=== PATIENT | male | born 1975 | race Caucasian/White ===

== ENCOUNTER 2018-12-11 23:55 | Emergency (ER) | payer SELFPAY ==
[~2018-12-11] VITALS: Ht 175.3 cm; Wt 72.7 kg
[2018-12-11 23:59] VITALS: BP 143/95
[2018-12-12] MEDS ORDERED: TRIA15CR61 TOP (00:40)
== END 2018-12-12 01:10 | disposition home or self-care (01) ==
LOC: ER 23:57
DX: L50.8 Other urticaria (principal); F17.200 Nicotine dependence, unspecified, uncomplicated; Z88.5 Allergy status to narcotic agent
CPT/HCPCS: 99283

== ENCOUNTER 2019-10-27 23:03 | Emergency (ER) | payer OTHER ==
[~2019-10-27] VITALS: Ht 177.8 cm; Wt 72.7 kg
[2019-10-27 23:25] VITALS: BP 108/71
[2019-10-27] MEDS ORDERED: HYDROcodone/acetaminophen 5mg/325mg tablet PO ONE (23:50)
== END 2019-10-28 | disposition home or self-care (01) ==
LOC: ER 23:04
DX: S63.501A Unspecified sprain of right wrist, initial encounter (principal); Z88.5 Allergy status to narcotic agent; W19.XXXA Unspecified fall, initial encounter; Y93.89 Activity, other specified; Y92.89 Other specified places as the place of occurrence of the external cause; Y99.8 Other external cause status
CPT/HCPCS: 29125; 73110; 99283

== ENCOUNTER 2020-02-29 00:35 | Emergency (ER) | payer SELFPAY ==
[~2020-02-29] VITALS: Ht 177.8 cm; Wt 72.7 kg
[2020-02-29 00:44] VITALS: BP 104/77
[2020-02-29] MEDS ORDERED: AZIT-63 PO (00:58)
== END 2020-02-29 01:20 | disposition home or self-care (01) ==
LOC: ER 00:35
DX: R06.02 Shortness of breath (principal); R11.0 Nausea; Z20.828 Contact with and (suspected) exposure to other viral communicable diseases; F17.200 Nicotine dependence, unspecified, uncomplicated; Z88.5 Allergy status to narcotic agent; Z79.899 Other long term (current) drug therapy
CPT/HCPCS: 36415; 87635; 99283

== ENCOUNTER 2020-03-05 08:09 | Emergency (ER) | payer OTHER, SELFPAY ==
[~2020-03-05] VITALS: Ht 177.8 cm; Wt 72.0 kg
[~2020-03-05 08:09] MED LIST: AZIT-63 PO
[2020-03-05 08:20] VITALS: BP 129/95
[2020-03-05] MEDS ORDERED: DOXY100C43 PO (08:29)
[2020-03-05] MEDS ORDERED: PRED20TA PO (08:29)
[2020-03-05] MEDS ORDERED: ALBU18HF2 INH (08:29)
[2020-03-05] MEDS ORDERED: dexamethasone 4mg tablet PO ONE (08:30)
[2020-03-05] MEDS ORDERED: ipratropium/albuterol 3ml nebule NEB ONE (08:30)
[2020-03-05] MEDS ORDERED: acetaminophen 325mg tablet PO ONE (08:30)
== END 2020-03-05 09:25 | disposition home or self-care (01) ==
LOC: ER 08:10
DX: J02.9 Acute pharyngitis, unspecified (principal); R06.02 Shortness of breath; R05 Cough; R43.8 Other disturbances of smell and taste; Z20.828 Contact with and (suspected) exposure to other viral communicable diseases
CPT/HCPCS: 94640; 94760; 99283; 99406

== ENCOUNTER 2020-03-16 10:33 | Emergency (ER) | payer SELFPAY ==
[~2020-03-16] VITALS: Ht 180.3 cm; Wt 72.7 kg
[~2020-03-16 10:33] MED LIST changes: +ALBU18HF2 INH; +DOXY100C43 PO; +PRED20TA PO
[2020-03-16 11:40] VITALS: BP 105/56
[2020-03-16] MEDS ORDERED: HYDR-3686 PO (12:25)
== END 2020-03-16 12:43 | disposition home or self-care (01) ==
LOC: ER 10:34
DX: F41.9 Anxiety disorder, unspecified (principal); Z88.0 Allergy status to penicillin; Z88.8 Allergy status to other drugs, medicaments and biological substances; Z79.2 Long term (current) use of antibiotics; Z79.899 Other long term (current) drug therapy
CPT/HCPCS: 99283

== ENCOUNTER 2020-03-19 05:14 | Emergency (ER) | payer OTHER, SELFPAY ==
[~2020-03-19] VITALS: Ht 157.5 cm; Wt 68.2 kg
[~2020-03-19 05:14] MED LIST changes: -DOXY100C43 PO; +HYDR-3686 PO
[2020-03-19 05:20] VITALS: BP 119/87
== END 2020-03-19 06:01 | disposition home or self-care (01) ==
LOC: ER 05:14
DX: Z00.00 Encounter for general adult medical examination without abnormal findings (principal); F41.9 Anxiety disorder, unspecified; F17.200 Nicotine dependence, unspecified, uncomplicated; Z72.89 Other problems related to lifestyle; Z88.5 Allergy status to narcotic agent; Z79.2 Long term (current) use of antibiotics; Z79.899 Other long term (current) drug therapy
CPT/HCPCS: 99283

== ENCOUNTER 2020-04-05 21:38 | Inpatient (IN) | payer OTHER ==
[~2020-04-05] VITALS: Ht 180.3 cm; Wt 70.0 kg
[~2020-04-05 21:38] MED LIST changes: -AZIT-63 PO; -HYDR-3686 PO; +temazepam 15mg capsule PO PRN
[2020-04-05] MEDS ORDERED: normal saline 1000ML IV soln IVB ONE (22:15)
[2020-04-05] MEDS ORDERED: iohexol 350MG/ML 100ml bottle IV ONE (22:16)
[2020-04-05 22:41] LABS: BASOPHILS # (AUTO) 0.1 X10'3 (0-0.2); BASOPHILS % (AUTO) 0.7 % (0-1); EOSINOPHILS # (AUTO) 0.4 X10'3 (0-0.9); EOSINOPHILS % (AUTO) 5.2 % (0-6); HEMATOCRIT 41.6 % (42.0-52.0); HEMOGLOBIN 13.9 g/dl (14.0-17.9); LYMPHOCYTES % (AUTO) 26.7 % (21-51); MEAN CORPUSCULAR HEMOGLOBIN 29.7 PG (27.0-31.0); MEAN CORPUSCULAR HGB CONC 33.5 g/dL (33.0-36.5); MEAN CORPUSCULAR VOLUME 88.5 FL (78-98); MEAN PLATELET VOLUME 9.3 FL (7.4-10.4); MONOCYTES # (AUTO) 0.7 X10'3 (0-0.9); MONOCYTES % (AUTO) 9.2 % (2-12); NEUTROPHILS # (AUTO) 4.4 X10'3 (1.8-7.7); NEUTROPHILS % (AUTO) 58.2 % (42-75); PLATELET COUNT 305 X10'3 (140-440); RED CELL DISTRIBUTION WIDTH 13.4 % (11.5-14.5); WHITE BLOOD COUNT 7.5 X10'3 (4.5-11.0)
[2020-04-05 22:51] LABS: ALANINE AMINOTRANSFERASE 43 U/L (12-78); ALBUMIN 3.6 G/DL (3.4-5.0); ALBUMIN/GLOBULIN RATIO 1.1 (1.1-1.5); ALKALINE PHOSPHATASE 51 IU/L (46-116); ANION GAP 11 (8-16); ASPARTATE AMINO TRANSFERASE 37 U/L (10-37); BILIRUBIN,TOTAL 0.5 MG/DL (0.1-1.0); BLOOD UREA NITROGEN 15 MG/DL (7-18); BUN/CREATININE RATIO 9.9 (5.4-32.0); CALCIUM 8.9 MG/DL (8.5-10.1); CHLORIDE 107 MMOL/L (99-107); CREATININE 1.52 MG/DL (0.60-1.10); GLUCOSE 107 MG/DL (70-104); POTASSIUM 4.8 MMOL/L (3.5-5.1); SODIUM 141 MMOL/L (135-145); TOTAL CARBON DIOXIDE 23.1 MMOL/L (24-32); eGFR 50 ML/MIN
[2020-04-05] MEDS ORDERED: LORA-269 PO (23:34)
[2020-04-05] MEDS ORDERED: HYDROcodone/acetaminophen 10/325mg tab PO PRN (23:40)
[2020-04-05] MEDS ORDERED: acetaminophen 325mg tablet PO PRN ×2 (23:40)
[2020-04-05] MEDS ORDERED: magnesium 4gm in 100ml NS 100 ML IV PRN (23:40)
[2020-04-05] MEDS ORDERED: magnesium 2GM in 50ml NS 50 ML IV PRN (23:40)
[2020-04-05] MEDS ORDERED: HYDROcodone/acetaminophen 5mg/325mg tablet PO PRN (23:40)
[2020-04-05] MEDS ORDERED: magnesium Cl slow-release 64mg tablet PO PRN (23:40)
[2020-04-05] MEDS ORDERED: mag hydrox/Alum hydrox/simeth 30ml oral suspension PO PRN (23:40)
[2020-04-05] MEDS ORDERED: potassium Cl 20 mEq SR tablet PO PRN ×2 (23:40)
[2020-04-05] MEDS ORDERED: magnesium hydroxide 30ml (MOM) UD suspension PO PRN (23:40)
[2020-04-05] MEDS ORDERED: potassium Cl 40MEQ/1/2NS 520ml 520 ML IV PRN ×2 (23:40)
[2020-04-05] MEDS ORDERED: ondansetron/PF 4mg/2ml inj IV PRN (23:40)
[2020-04-06] VITALS (8 sets, daily range): BP systolic 92–126; BP diastolic 56–92
[2020-04-06 00:02] LABS: PARTIAL THROMBOPLASTIN TIME 26 SECONDS (22-32)
[2020-04-06 00:12] LABS: URINE AMPHETAMINE SCREEN POSITIVE (Neg); URINE BARBITUATE SCREEN NEGATIVE (Neg); URINE BENZODIAZEPINES SCREEN NEGATIVE (Neg); URINE CANNABINOID SCREEN POSITIVE (Neg); URINE COCAINE SCREEN NEGATIVE (Neg); URINE METHADONE SCREEN NEGATIVE (Neg); URINE OPIATE SCREEN NEGATIVE (Neg); URINE PHENCYCLIDINE SCREEN NEGATIVE (Neg)
[2020-04-06] MEDS ORDERED: ALBUTEROL INHALER 1 PUFF/90 MCG INHALER IH PRN (00:55)
--- NOTE | 2020-04-06 01:40 | NUR ---
Received report from Teressa YOST in ED
--- NOTE | 2020-04-06 02:00 | NUR ---
Pt arrived to unit, repositioned and settled into bed, oriented to unit and room. Pt A&O and able to make needs known will continue to monitor.
--- NOTE | 2020-04-06 04:19 | NUR ---
Notified: PAGER ID: [phone] MESSAGE: admit in [id number] came up approx. 0200 from ED for SOb he has no resp orders and is complaining of sob O2 sats 95 on RA Killian YOST [id number]
[2020-04-06] MEDS: furosemide 20 MG/2 ML vial IV SCH ×3 (05:39→19:40)
[2020-04-06 05:45] LABS: HEMATOCRIT 40.3 % (42.0-52.0); HEMOGLOBIN 13.3 g/dl (14.0-17.9); MEAN CORPUSCULAR HEMOGLOBIN 29.4 PG (27.0-31.0); MEAN CORPUSCULAR HGB CONC 33.1 g/dL (33.0-36.5); MEAN CORPUSCULAR VOLUME 88.9 FL (78-98); MEAN PLATELET VOLUME 9.8 FL (7.4-10.4); PLATELET COUNT 299 X10'3 (140-440); RED BLOOD COUNT 4.53 X10'6 (4.70-6.10); RED CELL DISTRIBUTION WIDTH 13.6 % (11.5-14.5)
[2020-04-06 05:51] LABS: ALBUMIN 3.3 G/DL (3.4-5.0); ANION GAP 11 (8-16); BLOOD UREA NITROGEN 15 MG/DL (7-18); BUN/CREATININE RATIO 11.1 (5.4-32.0); CALCIUM 8.6 MG/DL (8.5-10.1); CHLORIDE 109 MMOL/L (99-107); CHOL/HDL RATIO 3.9 (0.00-4.99); CHOLESTEROL 140 MG/DL (0-200); CREATININE 1.35 MG/DL (0.60-1.10); GLUCOSE 109 MG/DL (70-104); HDL CHOLESTEROL 36 MG/DL (35-60); LDL CHOLESTEROL 89 MG/DL (50-100); MAGNESIUM 2.1 MG/DL (1.5-2.4); POTASSIUM 4.6 MMOL/L (3.5-5.1); SODIUM 141 MMOL/L (135-145); TRIGLYCERIDES 97 MG/DL (20-135); eGFR 57 ML/MIN
--- NOTE | 2020-04-06 06:36 | NUR ---
Received report with Alannah from [facility]
--- NOTE | 2020-04-06 06:41 | NUR ---
Patient in room PCU 3026. I have received report from RITIKA Daily and had the opportunity to ask questions and assume patient care. Patient asleep in bed and in no acute distress.
[2020-04-06] MEDS: K and/or MAG REPLACEMENT MC SCH ×2 (08:00→19:41)
[2020-04-06] MEDS: LORazepam 1 MG tablet PO PRN ×2 (09:18→19:22)
--- NOTE | 2020-04-06 11:54 | NUR ---
Patient had a thoracentesis done and had 700mL taken off the right side.
[2020-04-06 12:20] LABS: PLEURAL FLUID PH 7.509 (7.63-7.65)
[2020-04-06 12:23] LABS: BFSOURCE RIGHT PLEURAL FLD
[2020-04-06 13:11] LABS: GLUCOSE,BODY FLUID 114 MG/DL; LDH,BODY FLUID 85 U/L
[2020-04-06 13:42] LABS: TOTAL PROTEIN,BODY FLUID < 2.0 G/DL
[2020-04-06 13:49] LABS: BFAPPEAR BLOODY; BFCOLOR RED; BFVOLUME 55 ML
[2020-04-06 13:50] LABS: BF RBC COUNT 36500 /CU MM; BF WBC COUNT 519 /CU MM (0-1000)
[2020-04-06 13:54] LABS: EOSINOPHILS,BODY FLUID 13 %; LYMPHOCYTES,BODY FLUID 22 %; MONOCYTES,BODY FLUID 4 %; NEUTROPHILS,BODY FLUID 61 %
--- NOTE | 2020-04-06 14:05 | NUR ---
[place] Medication Administration: For this medication-pass time frame, all medication were reviewed, dispensed, administered and documented per hospital policy by RITIKA Canseco.
--- NOTE | 2020-04-06 14:05 | NUR ---
[place] documentation: I have reviewed and agree with all interventions, assessments performed and documented by RITIKA Canseco.
--- NOTE | 2020-04-06 14:10 | NUR ---
Problems reprioritized. Patient report given, questions answered & plan of care reviewed with RITIKA Alvarado. Patient stable at transfer of care.
--- NOTE | 2020-04-06 14:10 | NUR ---
gave report with Alannah Alvarado
--- NOTE | 2020-04-06 14:55 | NUR ---
RECEIVED REPORT FROM HI YOST, ASSUMING CARE.
[2020-04-06] MEDS ORDERED: carVEDilol 3.125mg tablet PO SCH (20:00)
[2020-04-06] MEDS ORDERED: furosemide 20 MG/2 ML vial IV SCH (20:00)
--- NOTE | 2020-04-06 23:25 | NUR ---
Dr Bethea call back to unit & renews coreg, but to cut dose in half
[2020-04-06] MEDS: carVEDilol 3.125mg tablet PO SCH (23:34)
[2020-04-07] VITALS (7 sets, daily range): BP systolic 93–126; BP diastolic 60–81
[2020-04-07 06:25] LABS: ALBUMIN 3.4 G/DL (3.4-5.0); ANION GAP 12 (8-16); BLOOD UREA NITROGEN 18 MG/DL (7-18); BUN/CREATININE RATIO 12.3 (5.4-32.0); CALCIUM 9.4 MG/DL (8.5-10.1); CHLORIDE 105 MMOL/L (99-107); CREATININE 1.46 MG/DL (0.60-1.10); GLUCOSE 102 MG/DL (70-104); MAGNESIUM 2.2 MG/DL (1.5-2.4); POTASSIUM 4.3 MMOL/L (3.5-5.1); SODIUM 141 MMOL/L (135-145); TOTAL CARBON DIOXIDE 24.2 MMOL/L (24-32); eGFR 52 ML/MIN
[2020-04-07 06:26] LABS: HEMATOCRIT 45.5 % (42.0-52.0); HEMOGLOBIN 15.3 g/dl (14.0-17.9); MEAN CORPUSCULAR HEMOGLOBIN 29.5 PG (27.0-31.0); MEAN CORPUSCULAR HGB CONC 33.6 g/dL (33.0-36.5); MEAN CORPUSCULAR VOLUME 87.8 FL (78-98); PLATELET COUNT 313 X10'3 (140-440); RED BLOOD COUNT 5.19 X10'6 (4.70-6.10); RED CELL DISTRIBUTION WIDTH 13.2 % (11.5-14.5); WHITE BLOOD COUNT 8.2 X10'3 (4.5-11.0)
[2020-04-07] MEDS: K and/or MAG REPLACEMENT MC SCH ×2 (08:00→19:13)
[2020-04-07] MEDS: carVEDilol 3.125mg tablet PO SCH ×3 (08:53→19:33)
[2020-04-07] MEDS: furosemide 20 MG/2 ML vial IV SCH (08:53)
[2020-04-07] MEDS: lisinopril 2.5mg tablet PO SCH (08:53)
[2020-04-07] MEDS: LORazepam 1 MG tablet PO PRN ×2 (08:57→19:34)
--- NOTE | 2020-04-07 18:14 | NUR ---
[place] documentation: I have reviewed and agree with all interventions, assessments performed and documented by RITIKA Canseco.
--- NOTE | 2020-04-07 18:14 | NUR ---
[place] Medication Administration: For this medication-pass time frame, all medication were reviewed, dispensed, administered and documented per hospital policy by RITIKA Canseco.
--- NOTE | 2020-04-07 18:20 | NUR ---
Report given to Monica
--- NOTE | 2020-04-07 19:17 | NUR ---
Patient in room PCU 3026. I have received report from Harleen YOST and had the opportunity to ask questions and assume patient care.
[2020-04-07] MEDS: furosemide 20MG tablet PO SCH (19:32)
[2020-04-08 06:00] VITALS: BP 113/48
[2020-04-08 06:06] LABS: HEMATOCRIT 48.3 % (42.0-52.0); HEMOGLOBIN 16.1 g/dl (14.0-17.9); MEAN CORPUSCULAR HEMOGLOBIN 29.2 PG (27.0-31.0); MEAN CORPUSCULAR HGB CONC 33.3 g/dL (33.0-36.5); MEAN CORPUSCULAR VOLUME 87.6 FL (78-98); MEAN PLATELET VOLUME 9.7 FL (7.4-10.4); PLATELET COUNT 324 X10'3 (140-440); RED BLOOD COUNT 5.51 X10'6 (4.70-6.10); RED CELL DISTRIBUTION WIDTH 13.6 % (11.5-14.5); WHITE BLOOD COUNT 8.7 X10'3 (4.5-11.0)
[2020-04-08 06:13] LABS: ALBUMIN 3.5 G/DL (3.4-5.0); ANION GAP 9 (8-16); BLOOD UREA NITROGEN 23 MG/DL (7-18); BUN/CREATININE RATIO 16.8 (5.4-32.0); CHLORIDE 105 MMOL/L (99-107); CREATININE 1.37 MG/DL (0.60-1.10); GLUCOSE 100 MG/DL (70-104); MAGNESIUM 2.2 MG/DL (1.5-2.4); POTASSIUM 4.2 MMOL/L (3.5-5.1); SODIUM 138 MMOL/L (135-145); TOTAL CARBON DIOXIDE 24.1 MMOL/L (24-32); eGFR 56 ML/MIN
--- NOTE | 2020-04-08 06:50 | NUR ---
Problems reprioritized. Patient report given, questions answered & plan of care reviewed with Ailin YOST.
[2020-04-08] MEDS: K and/or MAG REPLACEMENT MC SCH ×2 (08:00→20:00)
[2020-04-08] MEDS: lisinopril 2.5mg tablet PO SCH (08:00)
[2020-04-08] MEDS: carVEDilol 3.125mg tablet PO SCH ×2 (08:00→20:00)
[2020-04-08] MEDS: furosemide 20MG tablet PO SCH (08:00)
--- NOTE | 2020-04-08 10:05 | NUR ---
MD ROSEN RETURNED PAGED INSTANTLY ABOUT LOW BP 89/[address] STATES IT IS OK TO HOLD AM MEDICATIONS THEY WOULD ALL AFFECT HIS BP AND STATES HE MAY REDUCED LASIX ADMINISTRATION TO ONCE DAILY. WILL CONT. TO MONITOR WHILE ON MY SHIFT.
[2020-04-08 11:00] VITALS: BP 93/64
[2020-04-08 15:00] VITALS: BP 98/69
--- NOTE | 2020-04-08 17:42 | NUR ---
PAGER ID: [phone] MESSAGE: KRISTIE SKAGGS [id number] FYI NO PREVENTATIVE FOR BLOOD CLOTS AND PT. IS NOT WALKING. BECK [id number]
[2020-04-08 18:00] VITALS: BP 97/66
--- NOTE | 2020-04-08 18:54 | NUR ---
Gave report to Pippa YOST.
--- NOTE | 2020-04-08 18:55 | NUR ---
Patient in room PCU 3026. I have received report from AVIS YOST and had the opportunity to ask questions and assume patient care.
[2020-04-08] MEDS: LORazepam 1 MG tablet PO PRN (19:47)
[2020-04-08] MEDS ORDERED: enoxaparin 30mg/0.3ml syringe SUBCUT SCH (20:00)
[2020-04-08 22:00] VITALS: BP 116/74
[2020-04-09 02:00] VITALS: BP 120/82
--- NOTE | 2020-04-09 06:14 | NUR ---
Problems reprioritized. Patient report given, questions answered & plan of care reviewed with Melyssa YOST.
--- NOTE | 2020-04-09 06:17 | NUR ---
Patient in room PCU 3026. I have received report from RITIKA Lopez and had the opportunity to ask questions and assume patient care.
[2020-04-09 07:00] VITALS: BP 96/66
[2020-04-09 07:54] LABS: HEMATOCRIT 47.2 % (42.0-52.0); MEAN CORPUSCULAR HEMOGLOBIN 29.7 PG (27.0-31.0); MEAN CORPUSCULAR HGB CONC 33.9 g/dL (33.0-36.5); MEAN CORPUSCULAR VOLUME 87.7 FL (78-98); MEAN PLATELET VOLUME 9.8 FL (7.4-10.4); PLATELET COUNT 335 X10'3 (140-440); RED BLOOD COUNT 5.38 X10'6 (4.70-6.10); RED CELL DISTRIBUTION WIDTH 13.3 % (11.5-14.5); WHITE BLOOD COUNT 7.6 X10'3 (4.5-11.0)
[2020-04-09] MEDS ORDERED: furosemide 20MG tablet PO SCH (08:00)
[2020-04-09] MEDS: K and/or MAG REPLACEMENT MC SCH (08:00)
[2020-04-09 08:12] LABS: ALBUMIN 3.5 G/DL (3.4-5.0); ANION GAP 11 (8-16); BLOOD UREA NITROGEN 23 MG/DL (7-18); BUN/CREATININE RATIO 17.7 (5.4-32.0); CALCIUM 8.9 MG/DL (8.5-10.1); CHLORIDE 105 MMOL/L (99-107); GLUCOSE 99 MG/DL (70-104); MAGNESIUM 2.3 MG/DL (1.5-2.4); POTASSIUM 4.2 MMOL/L (3.5-5.1); SODIUM 138 MMOL/L (135-145); TOTAL CARBON DIOXIDE 22.5 MMOL/L (24-32); eGFR 60 ML/MIN
[2020-04-09] MEDS ORDERED: carVEDilol 3.125mg tablet PO SCH (08:45)
[2020-04-09] MEDS ORDERED: lisinopril 2.5mg tablet PO SCH (08:45)
--- NOTE | 2020-04-09 09:23 | NUR ---
Paged Dr Abdi regarding BP Re Saul Cutler [phone] Can you call me about pt please. BP manually is 82/70, please advise if you still want meds to be given. Thanks Melyssa Tobar [phone]
--- NOTE | 2020-04-09 09:25 | NUR ---
Per Dr Abdi, give Lisinopril PO first, see if BP tolerates medication, then give Lasix PO and Carvedilol PO if BP stays within normal limits.
[2020-04-09] MEDS: lisinopril 2.5mg tablet PO SCH (09:48)
[2020-04-09 11:00] VITALS: BP 102/72
--- NOTE | 2020-04-09 14:20 | NUR ---
Pt left AMA, Dr Abdi notified.
== END 2020-04-09 14:29 | disposition left against medical advice (07) | DRG 315 ==
LOC: ER 21:39 → ED HOLD 23:39 → PCU 3S 04-06 01:50 → OBSVTOIN 04-06 09:55
PROVIDERS: ADMIT Family Medicine; ATTEND Family Medicine
PROC: B32T1ZZ Computerized Tomography (CT Scan) of Left Pulmonary Artery using Low Osmolar Contrast (ICD-10-PCS; 2020-04-05)
PROC: B3201ZZ Computerized Tomography (CT Scan) of Thoracic Aorta using Low Osmolar Contrast (ICD-10-PCS; 2020-04-05)
PROC: B32S1ZZ Computerized Tomography (CT Scan) of Right Pulmonary Artery using Low Osmolar Contrast (ICD-10-PCS; 2020-04-05)
PROC: 0W993ZZ Drainage of Right Pleural Cavity, Percutaneous Approach (ICD-10-PCS; principal; 2020-04-06)
DX: I42.7 Cardiomyopathy due to drug and external agent (principal); I44.2 Atrioventricular block, complete; J91.8 Pleural effusion in other conditions classified elsewhere; F15.10 Other stimulant abuse, uncomplicated; F41.9 Anxiety disorder, unspecified; J40 Bronchitis, not specified as acute or chronic; I95.9 Hypotension, unspecified; R00.0 Tachycardia, unspecified; Z53.29 Procedure and treatment not carried out because of patient's decision for other reasons; F12.90 Cannabis use, unspecified, uncomplicated; N18.30 Chronic kidney disease, stage 3 unspecified; R40.0 Somnolence; I42.0 Dilated cardiomyopathy; Y92.89 Other specified places as the place of occurrence of the external cause; Z79.899 Other long term (current) drug therapy; Z88.0 Allergy status to penicillin; Z88.5 Allergy status to narcotic agent; Z87.891 Personal history of nicotine dependence
CPT/HCPCS: 32555; 36415; 71045; 71275; 76604; 80048; 80053; 80061; 80305; 82945; 83615; 83735; 83880; 83986; 84157; 84484; 85025; 85027; 85610; 85730; 87070; 87081; 87635; 89051; 93005; 93306; 93308; 99285; G0378; J1650; J1940; J7030; Q9967

== ENCOUNTER 2020-05-14 00:46 | Emergency (ER) | payer OTHER ==
[~2020-05-14] VITALS: Ht 177.8 cm; Wt 72.7 kg
[~2020-05-14 00:46] MED LIST changes: -PRED20TA PO; -temazepam 15mg capsule PO PRN
[2020-05-14 01:34] LABS: ALANINE AMINOTRANSFERASE 54 U/L (12-78); ALBUMIN 3.8 G/DL (3.4-5.0); ALBUMIN/GLOBULIN RATIO 1.1 (1.1-1.5); ALKALINE PHOSPHATASE 53 IU/L (46-116); ANION GAP 11 (8-16); ASPARTATE AMINO TRANSFERASE 45 U/L (10-37); BILIRUBIN,TOTAL 0.6 MG/DL (0.1-1.0); BLOOD UREA NITROGEN 27 MG/DL (7-18); BUN/CREATININE RATIO 21.1 (5.4-32.0); CALCIUM 8.8 MG/DL (8.5-10.1); CHLORIDE 105 MMOL/L (99-107); CREATININE 1.28 MG/DL (0.60-1.10); GLUCOSE 130 MG/DL (70-104); POTASSIUM 4.4 MMOL/L (3.5-5.1); SODIUM 138 MMOL/L (135-145); TOTAL CARBON DIOXIDE 22.1 MMOL/L (24-32); TOTAL PROTEIN 7.2 G/DL (6.4-8.2); eGFR 61 ML/MIN
[2020-05-14 01:48] LABS: BASOPHILS # (AUTO) 0.1 X10'3 (0-0.2); BASOPHILS % (AUTO) 0.9 % (0-1); EOSINOPHILS # (AUTO) 0.4 X10'3 (0-0.9); EOSINOPHILS % (AUTO) 4.3 % (0-6); HEMATOCRIT 42.7 % (42.0-52.0); HEMOGLOBIN 14.2 g/dl (14.0-17.9); LYMPHOCYTES # (AUTO) 2.6 X10'3 (1.1-4.8); LYMPHOCYTES % (AUTO) 29.6 % (21-51); MEAN CORPUSCULAR HGB CONC 33.2 g/dL (33.0-36.5); MEAN CORPUSCULAR VOLUME 87.4 FL (78-98); MONOCYTES # (AUTO) 0.8 X10'3 (0-0.9); MONOCYTES % (AUTO) 9.2 % (2-12); NEUTROPHILS # (AUTO) 4.9 X10'3 (1.8-7.7); PLATELET COUNT 276 X10'3 (140-440); RED BLOOD COUNT 4.88 X10'6 (4.70-6.10); RED CELL DISTRIBUTION WIDTH 14.5 % (11.5-14.5); WHITE BLOOD COUNT 8.8 X10'3 (4.5-11.0)
[2020-05-14] MEDS ORDERED: furosemide 20MG tablet PO ONE (02:05)
[2020-05-14 02:09] LABS: URINE AMPHETAMINE SCREEN NEGATIVE (Neg); URINE BARBITUATE SCREEN NEGATIVE (Neg); URINE BENZODIAZEPINES SCREEN NEGATIVE (Neg); URINE CANNABINOID SCREEN POSITIVE (Neg); URINE COCAINE SCREEN NEGATIVE (Neg); URINE METHADONE SCREEN NEGATIVE (Neg); URINE OPIATE SCREEN POSITIVE (Neg); URINE PHENCYCLIDINE SCREEN NEGATIVE (Neg)
[2020-05-14] MEDS ORDERED: FURO-150 PO (02:47)
[2020-05-14 02:50] VITALS: BP 114/85
== END 2020-05-14 03:07 | disposition home or self-care (01) ==
LOC: ER 00:46
DX: I50.9 Heart failure, unspecified (principal); F12.90 Cannabis use, unspecified, uncomplicated; Z72.89 Other problems related to lifestyle; Z88.0 Allergy status to penicillin; Z79.899 Other long term (current) drug therapy
CPT/HCPCS: 36415; 71045; 80053; 80305; 83880; 84484; 85025; 93005; 99285

== ENCOUNTER 2020-06-02 19:52 | Emergency (ER) | payer OTHER ==
[~2020-06-02] VITALS: Ht 172.7 cm; Wt 63.6 kg
[~2020-06-02 19:52] MED LIST changes: +FURO-150 PO
[2020-06-02] MEDS ORDERED: ketorolac tromethamine 15mg/ml inj. IM ONE (20:50)
[2020-06-02] MEDS ORDERED: ondansetron 4mg rapidly disintigrating tab PO ONE (20:50)
[2020-06-02 21:27] LABS: BASOPHILS # (AUTO) 0.1 X10'3 (0-0.2); BASOPHILS % (AUTO) 0.8 % (0-1); EOSINOPHILS # (AUTO) 0.3 X10'3 (0-0.9); HEMATOCRIT 48.9 % (42.0-52.0); HEMOGLOBIN 15.8 g/dl (14.0-17.9); LYMPHOCYTES # (AUTO) 1.7 X10'3 (1.1-4.8); LYMPHOCYTES % (AUTO) 14.8 % (21-51); MEAN CORPUSCULAR HEMOGLOBIN 28.8 PG (27.0-31.0); MEAN CORPUSCULAR HGB CONC 32.3 g/dL (33.0-36.5); MEAN PLATELET VOLUME 9.6 FL (7.4-10.4); MONOCYTES # (AUTO) 1.1 X10'3 (0-0.9); MONOCYTES % (AUTO) 9.5 % (2-12); NEUTROPHILS # (AUTO) 8.4 X10'3 (1.8-7.7); NEUTROPHILS % (AUTO) 71.9 % (42-75); PLATELET COUNT 244 X10'3 (140-440); RED BLOOD COUNT 5.49 X10'6 (4.70-6.10); RED CELL DISTRIBUTION WIDTH 15.1 % (11.5-14.5); WHITE BLOOD COUNT 11.7 X10'3 (4.5-11.0)
[2020-06-02 21:40] LABS: ALANINE AMINOTRANSFERASE 81 U/L (12-78); ALBUMIN 3.6 G/DL (3.4-5.0); ALKALINE PHOSPHATASE 56 IU/L (46-116); ANION GAP 13 (8-16); ASPARTATE AMINO TRANSFERASE 56 U/L (10-37); BILIRUBIN,TOTAL 1.1 MG/DL (0.1-1.0); BLOOD UREA NITROGEN 18 MG/DL (7-18); BUN/CREATININE RATIO 13.2 (5.4-32.0); CALCIUM 9.3 MG/DL (8.5-10.1); CHLORIDE 105 MMOL/L (99-107); CREATININE 1.36 MG/DL (0.60-1.10); GLUCOSE 108 MG/DL (70-104); LIPASE 235 U/L (73-393); POTASSIUM 4.6 MMOL/L (3.5-5.1); SODIUM 139 MMOL/L (135-145); TOTAL CARBON DIOXIDE 21.3 MMOL/L (24-32); TOTAL PROTEIN 7.3 G/DL (6.4-8.2); eGFR 57 ML/MIN
[2020-06-02] MEDS ORDERED: ONDA4TAB6 PO (21:44)
[2020-06-02 21:55] VITALS: BP 94/67
[2020-06-03] MEDS ORDERED: PANT40TA54 PO (20:16)
== END 2020-06-02 21:58 | disposition home or self-care (01) ==
LOC: ER 19:53
DX: R10.32 Left lower quadrant pain (principal); F41.9 Anxiety disorder, unspecified; F12.90 Cannabis use, unspecified, uncomplicated; Z72.89 Other problems related to lifestyle; Z88.5 Allergy status to narcotic agent; Z79.899 Other long term (current) drug therapy
CPT/HCPCS: 36415; 80053; 83690; 85025; 96372; 99283; J1885

== ENCOUNTER 2020-06-03 15:35 | Emergency (ER) | payer MEDICAID, OTHER ==
[~2020-06-03] VITALS: Ht 177.8 cm; Wt 75.0 kg
[~2020-06-03 15:35] MED LIST changes: +ONDA4TAB6 PO
[2020-06-03 16:54] LABS: BASOPHILS # (AUTO) 0.1 X10'3 (0-0.2); BASOPHILS % (AUTO) 0.8 % (0-1); EOSINOPHILS # (AUTO) 0.1 X10'3 (0-0.9); EOSINOPHILS % (AUTO) 1.2 % (0-6); HEMATOCRIT 46.9 % (42.0-52.0); HEMOGLOBIN 15.5 g/dl (14.0-17.9); LYMPHOCYTES # (AUTO) 1.9 X10'3 (1.1-4.8); MEAN CORPUSCULAR HEMOGLOBIN 28.9 PG (27.0-31.0); MEAN CORPUSCULAR VOLUME 87.6 FL (78-98); MEAN PLATELET VOLUME 10.3 FL (7.4-10.4); MONOCYTES % (AUTO) 8.7 % (2-12); NEUTROPHILS # (AUTO) 8.6 X10'3 (1.8-7.7); NEUTROPHILS % (AUTO) 73.3 % (42-75); PLATELET COUNT 240 X10'3 (140-440); RED BLOOD COUNT 5.36 X10'6 (4.70-6.10); RED CELL DISTRIBUTION WIDTH 15.3 % (11.5-14.5); WHITE BLOOD COUNT 11.8 X10'3 (4.5-11.0)
[2020-06-03] MEDS ORDERED: normal saline 1000ML IV soln IVB ONE (17:00)
[2020-06-03] MEDS ORDERED: ondansetron/PF 4mg/2ml inj IV ONE (17:00)
[2020-06-03] MEDS ORDERED: morphine 4 MG/ML inj SYRINge IV ONE (17:00)
[2020-06-03 17:07] LABS: ALANINE AMINOTRANSFERASE 283 U/L (12-78); ALBUMIN 3.9 G/DL (3.4-5.0); ALKALINE PHOSPHATASE 69 IU/L (46-116); ANION GAP 15 (8-16); ASPARTATE AMINO TRANSFERASE 332 U/L (10-37); BILIRUBIN,TOTAL 1.9 MG/DL (0.1-1.0); BLOOD UREA NITROGEN 21 MG/DL (7-18); BUN/CREATININE RATIO 12.7 (5.4-32.0); CALCIUM 9.5 MG/DL (8.5-10.1); CHLORIDE 103 MMOL/L (99-107); CREATININE 1.66 MG/DL (0.60-1.10); GLUCOSE 106 MG/DL (70-104); LIPASE 196 U/L (73-393); SODIUM 141 MMOL/L (135-145); TOTAL CARBON DIOXIDE 23.3 MMOL/L (24-32); TOTAL PROTEIN 7.9 G/DL (6.4-8.2); eGFR 45 ML/MIN
[2020-06-03] MEDS ORDERED: iohexol 300mg/ml 100ml inj. ONE (17:15)
[2020-06-03 17:33] LABS: CLARITY,URINE CLEAR (Clear); GLUCOSE, URINE NEGATIVE (Neg); KETONES,URINE NEGATIVE (Neg); LEUKOCYTE ESTERASE ,URINE NEGATIVE (Neg); NITRITES, URINE NEGATIVE (Neg); OCCULT BLOOD,URINE TRACE-INTACT (Neg); PH,URINE 5.5 (4.8-8.0); PROTEIN,URINE 100 mg/dl (Neg); UA COLLECTION TYPE VOIDED; UROBILINOGEN,URINE 0.2 E.U/dL (0.2-1.0)
[2020-06-03 17:34] LABS: COLOR,URINE DARK YELLOW (Yellow)
[2020-06-03 17:42] LABS: BACTERIA,URINE NONE SEEN /HPF (Neg); WBC,URINE 0-4 /HPF (0-4)
[2020-06-03 17:43] LABS: MUCUS STRANDS MANY /LPF (Neg); RBC,URINE 0-2 /HPF (0-2); SQUAMOUS EPITHELIAL CELL,UR NONE SEEN /LPF (FEW)
--- NOTE | 2020-06-03 17:54 | NUR ---
PT TO CT
--- NOTE | 2020-06-03 18:00 | NUR ---
PT BACK FROM CT
[2020-06-03] MEDS ORDERED: PANT40TA54 PO (20:16)
[2020-06-03] MEDS ORDERED: LIDOcaine Viscous 15ml cup MM ONE (20:25)
[2020-06-03] MEDS ORDERED: famotidine/PF 10 mg/ml inj IV ONE (20:25)
[2020-06-03] MEDS ORDERED: mag hydrox/Alum hydrox/simeth 30ml oral suspension PO ONE (20:25)
[2020-06-03 20:46] VITALS: BP 131/106
[2020-06-04] MEDS ORDERED: DIAZ10TA PO (09:49)
== END 2020-06-03 21:04 | disposition home or self-care (01) ==
LOC: ER 15:35
DX: R10.32 Left lower quadrant pain (principal); F41.9 Anxiety disorder, unspecified; F12.90 Cannabis use, unspecified, uncomplicated; Z72.89 Other problems related to lifestyle; Z88.0 Allergy status to penicillin; Z88.5 Allergy status to narcotic agent; Z79.899 Other long term (current) drug therapy
CPT/HCPCS: 36415; 74177; 76700; 80053; 81001; 83690; 85025; 96374; 96375; 99285; J2270; J2405; J3490; J7030; Q9967

== ENCOUNTER 2020-06-04 05:49 | Inpatient (IN) | payer MEDICAID, OTHER ==
[~2020-06-04] VITALS: Ht 177.8 cm; Wt 78.1 kg
[~2020-06-04 05:49] MED LIST changes: +PANT40TA54 PO
[2020-06-04] MEDS ORDERED: metoclopramide 5 mg/ml inj IV ONE (06:25)
[2020-06-04] MEDS ORDERED: ketorolac trometh. 30mg/ml inj. IV ONE (06:25)
[2020-06-04] MEDS ORDERED: dicyclomine 10mg/ml 2ml ampule IM ONE (06:25)
[2020-06-04 07:04] LABS: ALBUMIN 3.6 G/DL (3.4-5.0); ALKALINE PHOSPHATASE 71 IU/L (46-116); ANION GAP 11 (8-16); BILIRUBIN,TOTAL 2.3 MG/DL (0.1-1.0); BLOOD UREA NITROGEN 25 MG/DL (7-18); BUN/CREATININE RATIO 13.2 (5.4-32.0); CALCIUM 8.9 MG/DL (8.5-10.1); CHLORIDE 99 MMOL/L (99-107); ETHANOL < 0.010 GM/DL (0.0-0.010); GLUCOSE 140 MG/DL (70-104); LIPASE 484 U/L (73-393); POTASSIUM 5.7 MMOL/L (3.5-5.1); SODIUM 134 MMOL/L (135-145); TOTAL CARBON DIOXIDE 23.8 MMOL/L (24-32); TOTAL PROTEIN 7.3 G/DL (6.4-8.2); eGFR 39 ML/MIN
[2020-06-04 07:06] LABS: ALANINE AMINOTRANSFERASE 2908 U/L (12-78)
[2020-06-04 07:16] LABS: URINE AMPHETAMINE SCREEN NEGATIVE (Neg); URINE BARBITUATE SCREEN NEGATIVE (Neg); URINE BENZODIAZEPINES SCREEN POSITIVE (Neg); URINE CANNABINOID SCREEN POSITIVE (Neg); URINE COCAINE SCREEN NEGATIVE (Neg); URINE METHADONE SCREEN NEGATIVE (Neg); URINE OPIATE SCREEN POSITIVE (Neg); URINE PHENCYCLIDINE SCREEN NEGATIVE (Neg)
[2020-06-04 07:37] LABS: COLOR,URINE AMBER (Yellow); GLUCOSE, URINE NEGATIVE (Neg); KETONES,URINE NEGATIVE (Neg); LEUKOCYTE ESTERASE ,URINE NEGATIVE (Neg); NITRITES, URINE NEGATIVE (Neg); OCCULT BLOOD,URINE LARGE (Neg); PH,URINE 5.5 (4.8-8.0); PROTEIN,URINE >=300 mg/dl (Neg)
[2020-06-04 07:39] LABS: ASPARTATE AMINO TRANSFERASE 4655 U/L (10-37)
[2020-06-04 07:42] LABS: CLARITY,URINE SLIGHTLY CLOUDY (Clear); UA COLLECTION TYPE URINAL
[2020-06-04 07:43] LABS: BACTERIA,URINE NONE SEEN /HPF (Neg); MUCUS STRANDS MODERATE /LPF (Neg); RBC,URINE 0-2 /HPF (0-2); SQUAMOUS EPITHELIAL CELL,UR NONE SEEN /LPF (FEW); WBC,URINE 0-4 /HPF (0-4)
[2020-06-04 07:44] LABS: AMORPHOUS URATES 2+
[2020-06-04] MEDS ORDERED: normal saline 1000ml 1,000 ML IV ONE (07:50)
--- NOTE | 2020-06-04 08:00 | NUR ---
to CT scan
[2020-06-04 08:56] LABS: ACETAMINOPHEN < 2.0 UG/ML (10-30)
[2020-06-04 09:37] LABS: BASOPHILS # (AUTO) 0.1 X10'3 (0-0.2); BASOPHILS % (AUTO) 0.5 % (0-1); EOSINOPHILS % (AUTO) 0.1 % (0-6); HEMATOCRIT 43.4 % (42.0-52.0); HEMOGLOBIN 14.3 g/dl (14.0-17.9); LYMPHOCYTES # (AUTO) 1.5 X10'3 (1.1-4.8); LYMPHOCYTES % (AUTO) 13.6 % (21-51); MEAN CORPUSCULAR HEMOGLOBIN 28.9 PG (27.0-31.0); MEAN CORPUSCULAR HGB CONC 32.9 g/dL (33.0-36.5); MEAN CORPUSCULAR VOLUME 87.8 FL (78-98); MEAN PLATELET VOLUME 10.6 FL (7.4-10.4); MONOCYTES # (AUTO) 1.8 X10'3 (0-0.9); MONOCYTES % (AUTO) 15.6 % (2-12); NEUTROPHILS % (AUTO) 70.2 % (42-75); PLATELET COUNT 185 X10'3 (140-440); RED BLOOD COUNT 4.94 X10'6 (4.70-6.10); RED CELL DISTRIBUTION WIDTH 15.1 % (11.5-14.5); WHITE BLOOD COUNT 11.4 X10'3 (4.5-11.0)
[2020-06-04] MEDS ORDERED: DIAZ10TA PO (09:49)
[2020-06-04] MEDS ORDERED: magnesium 4gm in 100ml NS 100 ML IV PRN (10:00)
[2020-06-04] MEDS ORDERED: potassium Cl 40MEQ/1/2NS 520ml 520 ML IV PRN ×2 (10:00)
[2020-06-04] MEDS ORDERED: acetaminophen 325mg tablet PO PRN (10:00)
[2020-06-04] MEDS ORDERED: potassium Cl 20 mEq SR tablet PO PRN ×2 (10:00)
[2020-06-04] MEDS ORDERED: ondansetron/PF 4mg/2ml inj IV PRN (10:00)
[2020-06-04] MEDS ORDERED: ibuprofen tablet 400 MG TABLET PO PRN ×2 (10:00)
[2020-06-04] MEDS ORDERED: magnesium Cl slow-release 64mg tablet PO PRN (10:00)
[2020-06-04] MEDS ORDERED: magnesium hydroxide 30ml (MOM) UD suspension PO PRN (10:00)
[2020-06-04] MEDS ORDERED: mag hydrox/Alum hydrox/simeth 30ml oral suspension PO PRN (10:00)
[2020-06-04] MEDS ORDERED: normal saline 1000ml 1,000 ML IV SCH (10:00)
[2020-06-04] MEDS ORDERED: magnesium 2GM in 50ml NS 50 ML IV PRN (10:00)
[2020-06-04 10:54] LABS: MAGNESIUM 2.5 MG/DL (1.5-2.4); PHOSPHORUS 3.7 MG/DL (2.3-4.5)
[2020-06-04 11:01] LABS: HIV ANTIBODY 1&2 RAPID NON-REACTIVE (Neg)
[2020-06-04] MEDS ORDERED: normal saline 1000ml 1,000 ML IVB ONE ×2 (11:20)
[2020-06-04] MEDS: HYDROmorphone inj. 0.5 MG/0.5 ML DISP.SYRIN IV PRN ×2 (11:23→14:36)
[2020-06-04 11:30] VITALS: BP 114/53
--- NOTE | 2020-06-04 11:45 | NUR ---
Dr Self aware of patients K+5.7, Per Dr Self no orders at this time continue to monitor. Lactic acid came back at 3.4 received orders to do 2L bolus, then those orders were discontinued due to patients CHF and Past echo will await for repeat Lactic test in [address] Self would like patient to be transferred to Tele for Tele monitoring, Echo for EF evaluation, chest xray. NS @ 50 ml's per hour. PBNP add on test. Clear diet NPO at midnight for CT scan in am
--- NOTE | 2020-06-04 12:10 | NUR ---
Problems reprioritized. Patient report given, questions answered & plan of care reviewed with Kathe RN on Tele.
--- NOTE | 2020-06-04 12:30 | NUR ---
Called and spoke to Journalism Intern regarding patient being on a fluid restrictions and and a clear diet she will work on this and contact Kathe on Tele
--- NOTE | 2020-06-04 14:01 | NUR ---
PAGER ID: [phone] MESSAGE: [id number] GILES AGUILAR PT HAD A CRITICAL LACTIC LEVEL OF 4.4
[2020-06-04] MEDS ORDERED: CefTRIAXone/D5W-Rocephin 1gm 50 ML IV ONE (14:30)
[2020-06-04 14:49] LABS: CHOL/HDL RATIO 3.1 (0.00-4.99); CHOLESTEROL 95 MG/DL (0-200); HDL CHOLESTEROL 31 MG/DL (35-60); LDL CHOLESTEROL 62 MG/DL (50-100); TRIGLYCERIDES 50 MG/DL (20-135)
[2020-06-04] MEDS ORDERED: furosemide 20 MG/2 ML vial IV ONE (15:40)
[2020-06-04] MEDS ORDERED: vancomycin/NS 1 GM ADD-VANTAGE 250 ML IV SCH (16:00)
[2020-06-04 16:26] VITALS: BP 105/77
[2020-06-04 18:00] VITALS: BP 108/82
[2020-06-04] MEDS ORDERED: SINCALIDE IV ONE (18:50)
[2020-06-04] MEDS ORDERED: NORMAL SALINE IV ONE (18:50)
[2020-06-04] MEDS: K and/or MAG REPLACEMENT MC SCH (19:12)
[2020-06-04 22:00] VITALS: BP 114/82
[2020-06-04] MEDS: furosemide 20 MG/2 ML vial IV SCH (22:33)
[2020-06-04] MEDS: carVEDilol 3.125mg tablet PO SCH (22:33)
[2020-06-04] MEDS: diatr meglu/diatrizoate 30ml oral sol.-(3 dose) bottle PO SCH (22:34)
--- NOTE | 2020-06-05 06:15 | NUR ---
received bedside report from Juan rn, pt retless but sleeping
[2020-06-05 06:43] LABS: BASOPHILS # (AUTO) 0.1 X10'3 (0-0.2); BASOPHILS % (AUTO) 0.5 % (0-1); EOSINOPHILS % (AUTO) 0.2 % (0-6); HEMATOCRIT 42.5 % (42.0-52.0); LYMPHOCYTES # (AUTO) 1.5 X10'3 (1.1-4.8); LYMPHOCYTES % (AUTO) 10.5 % (21-51); MEAN CORPUSCULAR HEMOGLOBIN 28.6 PG (27.0-31.0); MEAN CORPUSCULAR VOLUME 86.9 FL (78-98); MEAN PLATELET VOLUME 12.1 FL (7.4-10.4); MONOCYTES # (AUTO) 1.1 X10'3 (0-0.9); MONOCYTES % (AUTO) 8.1 % (2-12); NEUTROPHILS # (AUTO) 11.4 X10'3 (1.8-7.7); NEUTROPHILS % (AUTO) 80.7 % (42-75); PLATELET COUNT 151 X10'3 (140-440); RED BLOOD COUNT 4.89 X10'6 (4.70-6.10); RED CELL DISTRIBUTION WIDTH 14.8 % (11.5-14.5); WHITE BLOOD COUNT 14.2 X10'3 (4.5-11.0)
[2020-06-05 06:59] VITALS: BP 96/68
[2020-06-05 07:16] LABS: ALBUMIN 3.3 G/DL (3.4-5.0); ALBUMIN/GLOBULIN RATIO 1.1 (1.1-1.5); ALKALINE PHOSPHATASE 68 IU/L (46-116); ANION GAP 13 (8-16); BILIRUBIN,TOTAL 2.7 MG/DL (0.1-1.0); BLOOD UREA NITROGEN 46 MG/DL (7-18); BUN/CREATININE RATIO 18.9 (5.4-32.0); CALCIUM 8.5 MG/DL (8.5-10.1); CHLORIDE 98 MMOL/L (99-107); CHOL/HDL RATIO 2.9 (0.00-4.99); CHOLESTEROL 77 MG/DL (0-200); CREATININE 2.43 MG/DL (0.60-1.10); GLUCOSE 77 MG/DL (70-104); HDL CHOLESTEROL 27 MG/DL (35-60); LDL CHOLESTEROL 50 MG/DL (50-100); MAGNESIUM 2.7 MG/DL (1.5-2.4); SODIUM 131 MMOL/L (135-145); TOTAL CARBON DIOXIDE 19.6 MMOL/L (24-32); TOTAL PROTEIN 6.3 G/DL (6.4-8.2); TRIGLYCERIDES 66 MG/DL (20-135); eGFR 29 ML/MIN
[2020-06-05 07:34] LABS: ANISOCYTOSIS 1+; LARGE PLATELETS FEW; PLATELET ESTIMATE NORMAL; POLYCHROMASIA 1+
[2020-06-05 07:43] LABS: POTASSIUM 6.2 MMOL/L (3.5-5.1)
--- NOTE | 2020-06-05 07:44 | NUR ---
CRITICAL LAB RESULT TAKEN FROM LAB, REPORTED TO PRIMARY RN.
[2020-06-05] MEDS: carVEDilol 3.125mg tablet PO SCH ×2 (08:00→20:58)
[2020-06-05] MEDS ORDERED: CefTRIAXone/D5W-Rocephin 1gm 50 ML IV SCH (08:00)
[2020-06-05] MEDS: K and/or MAG REPLACEMENT MC SCH ×2 (08:00→20:00)
--- NOTE | 2020-06-05 08:02 | NUR ---
PAGER ID: [phone] MESSAGE: [id number] JEFF SKAGGS PT K LEVEL IS 6.2
[2020-06-05 08:24] LABS: ALANINE AMINOTRANSFERASE 5675 U/L (12-78); ASPARTATE AMINO TRANSFERASE > 7000 U/L (10-37)
[2020-06-05] MEDS ORDERED: spironolactone 25 MG tablet PO SCH (08:30)
[2020-06-05] MEDS: aspirin 81mg tablet.DR PO SCH (08:46)
[2020-06-05] MEDS: enoxaparin 40mg/0.4ml syringe SUBCUT SCH (08:46)
[2020-06-05] MEDS: furosemide 20 MG/2 ML vial IV SCH ×2 (08:48→20:58)
[2020-06-05] MEDS: HYDROmorphone inj. 0.5 MG/0.5 ML DISP.SYRIN IV PRN ×2 (09:01→20:57)
[2020-06-05] MEDS: diatr meglu/diatrizoate 30ml oral sol.-(3 dose) bottle PO SCH ×2 (10:26→20:58)
[2020-06-05] MEDS ORDERED: NO HOME MEDS (10:55)
[2020-06-05] MEDS ORDERED: NORMAL SALINE IV ONE (11:40)
[2020-06-05] MEDS ORDERED: SINCALIDE IV ONE (11:40)
[2020-06-05] MEDS ORDERED: sodium polystyrene sulfonate 15gm/60ml oral suspension PO ONE (12:20)
[2020-06-05 12:30] VITALS: BP 94/70
[2020-06-05] MEDS ORDERED: VANCOMYCIN 750MG IV in NS 250 ML IV SCH (16:00)
[2020-06-05 16:08] VITALS: BP 92/60
[2020-06-05 18:00] VITALS: BP 93/72
[2020-06-05] MEDS: lactobacillus rhamnosus 10,000 MMU CELLS/CAPSULE PO SCH (20:57)
[2020-06-05 22:00] VITALS: BP 102/71
[2020-06-06] VITALS (7 sets, daily range): BP systolic 90–106; BP diastolic 57–72
[2020-06-06] MEDS: HYDROmorphone inj. 0.5 MG/0.5 ML DISP.SYRIN IV PRN ×3 (04:56→20:53)
--- NOTE | 2020-06-06 06:51 | NUR ---
RECEIVED BEDSIDE REPORT FROM MINA YOST
[2020-06-06 06:55] LABS: BASOPHILS # (AUTO) 0.1 X10'3 (0-0.2); EOSINOPHILS # (AUTO) 0.5 X10'3 (0-0.9); EOSINOPHILS % (AUTO) 4.2 % (0-6); HEMOGLOBIN 13.5 g/dl (14.0-17.9); LYMPHOCYTES # (AUTO) 1.7 X10'3 (1.1-4.8); LYMPHOCYTES % (AUTO) 14.6 % (21-51); MEAN CORPUSCULAR HEMOGLOBIN 28.6 PG (27.0-31.0); MEAN CORPUSCULAR HGB CONC 32.9 g/dL (33.0-36.5); MEAN CORPUSCULAR VOLUME 86.9 FL (78-98); MEAN PLATELET VOLUME 11.3 FL (7.4-10.4); MONOCYTES # (AUTO) 0.9 X10'3 (0-0.9); MONOCYTES % (AUTO) 8.1 % (2-12); NEUTROPHILS # (AUTO) 8.4 X10'3 (1.8-7.7); NEUTROPHILS % (AUTO) 72.1 % (42-75); PLATELET COUNT 168 X10'3 (140-440); RED BLOOD COUNT 4.71 X10'6 (4.70-6.10); RED CELL DISTRIBUTION WIDTH 14.8 % (11.5-14.5); WHITE BLOOD COUNT 11.6 X10'3 (4.5-11.0)
[2020-06-06] MEDS: K and/or MAG REPLACEMENT MC SCH ×2 (07:18→20:00)
[2020-06-06 07:48] LABS: ALBUMIN 2.9 G/DL (3.4-5.0); ALKALINE PHOSPHATASE 69 IU/L (46-116); ANION GAP 11 (8-16); BILIRUBIN,DIRECT 0.9 MG/DL (0-0.3); BILIRUBIN,TOTAL 2.1 MG/DL (0.1-1.0); BLOOD UREA NITROGEN 53 MG/DL (7-18); BUN/CREATININE RATIO 27.6 (5.4-32.0); CHLORIDE 98 MMOL/L (99-107); CREATININE 1.92 MG/DL (0.60-1.10); GLUCOSE 109 MG/DL (70-104); MAGNESIUM 2.6 MG/DL (1.5-2.4); POTASSIUM 4.5 MMOL/L (3.5-5.1); SODIUM 130 MMOL/L (135-145); TOTAL CARBON DIOXIDE 21.3 MMOL/L (24-32); TOTAL PROTEIN 5.8 G/DL (6.4-8.2); eGFR 38 ML/MIN
[2020-06-06 08:15] LABS: ALANINE AMINOTRANSFERASE 3393 U/L (12-78); ASPARTATE AMINO TRANSFERASE 2260 U/L (10-37)
[2020-06-06] MEDS: enoxaparin 40mg/0.4ml syringe SUBCUT SCH (08:22)
[2020-06-06] MEDS: furosemide 20 MG/2 ML vial IV SCH ×2 (08:23→20:58)
[2020-06-06] MEDS: lactobacillus rhamnosus 10,000 MMU CELLS/CAPSULE PO SCH ×2 (08:23→20:58)
[2020-06-06] MEDS: aspirin 81mg tablet.DR PO SCH (08:23)
[2020-06-06] MEDS: carVEDilol 3.125mg tablet PO SCH ×2 (08:23→20:58)
--- NOTE | 2020-06-06 18:20 | NUR ---
RECEIVED BEDSIDE REPORT FROM ROGELIO YOST
[2020-06-07] VITALS (7 sets, daily range): BP systolic 89–102; BP diastolic 58–73
[2020-06-07] MEDS: HYDROmorphone inj. 0.5 MG/0.5 ML DISP.SYRIN IV PRN ×2 (04:35→10:37)
--- NOTE | 2020-06-07 05:01 | NUR ---
PT ALERT AND ORIENTED. FAMILY WANTS TO SPEAK WITH MD. REPORTED TO THE NURSE. PATIENT COMPLAINING OF PAIN AND PAIN MEDS GIVEN . RESTING ON BED QUIETLY WITH NO APPARENT DISTRESS. KEEP MONITORING
--- NOTE | 2020-06-07 06:33 | NUR ---
Problems reprioritized. Patient report given, questions answered & plan of care reviewed with RITIKA Aviles on Tele.
[2020-06-07 07:58] LABS: BASOPHILS # (AUTO) 0.1 X10'3 (0-0.2); BASOPHILS % (AUTO) 0.8 % (0-1); EOSINOPHILS # (AUTO) 0.5 X10'3 (0-0.9); EOSINOPHILS % (AUTO) 4.3 % (0-6); HEMOGLOBIN 13.3 g/dl (14.0-17.9); MEAN PLATELET VOLUME 12.4 FL (7.4-10.4); WHITE BLOOD COUNT 11.9 X10'3 (4.5-11.0)
[2020-06-07] MEDS: lactobacillus rhamnosus 10,000 MMU CELLS/CAPSULE PO SCH ×2 (07:59→21:26)
[2020-06-07] MEDS: aspirin 81mg tablet.DR PO SCH (07:59)
[2020-06-07 08:00] LABS: HEMATOCRIT 40.7 % (42.0-52.0); LYMPHOCYTES # (AUTO) 2.2 X10'3 (1.1-4.8); LYMPHOCYTES % (AUTO) 18.5 % (21-51); MEAN CORPUSCULAR HEMOGLOBIN 28.2 PG (27.0-31.0); MEAN CORPUSCULAR HGB CONC 32.7 g/dL (33.0-36.5); MEAN CORPUSCULAR VOLUME 86.3 FL (78-98); MONOCYTES # (AUTO) 1.4 X10'3 (0-0.9); MONOCYTES % (AUTO) 12.1 % (2-12); NEUTROPHILS # (AUTO) 7.7 X10'3 (1.8-7.7); NEUTROPHILS % (AUTO) 64.3 % (42-75); PLATELET COUNT 159 X10'3 (140-440); RED BLOOD COUNT 4.71 X10'6 (4.70-6.10); RED CELL DISTRIBUTION WIDTH 14.9 % (11.5-14.5)
[2020-06-07] MEDS: carVEDilol 3.125mg tablet PO SCH ×2 (08:00→20:00)
[2020-06-07] MEDS: furosemide 20 MG/2 ML vial IV SCH (08:00)
[2020-06-07] MEDS: K and/or MAG REPLACEMENT MC SCH ×2 (08:00→19:04)
[2020-06-07] MEDS: enoxaparin 40mg/0.4ml syringe SUBCUT SCH (08:11)
[2020-06-07 08:57] LABS: ANISOCYTOSIS 1+; GIANT PLATELET FEW; LARGE PLATELETS FEW; PLATELET ESTIMATE NORMAL; POLYCHROMASIA FEW
[2020-06-07 09:21] LABS: ALBUMIN 2.9 G/DL (3.4-5.0); ALKALINE PHOSPHATASE 74 IU/L (46-116); ANION GAP 12 (8-16); BILIRUBIN,TOTAL 2.1 MG/DL (0.1-1.0); BLOOD UREA NITROGEN 51 MG/DL (7-18); BUN/CREATININE RATIO 30.2 (5.4-32.0); CALCIUM 8.1 MG/DL (8.5-10.1); CHLORIDE 96 MMOL/L (99-107); CREATININE 1.69 MG/DL (0.60-1.10); GLUCOSE 99 MG/DL (70-104); MAGNESIUM 2.4 MG/DL (1.5-2.4); POTASSIUM 4.5 MMOL/L (3.5-5.1); SODIUM 130 MMOL/L (135-145); TOTAL CARBON DIOXIDE 21.8 MMOL/L (24-32); TOTAL PROTEIN 5.9 G/DL (6.4-8.2); eGFR 44 ML/MIN
[2020-06-07 09:29] LABS: ALANINE AMINOTRANSFERASE 2642 U/L (12-78); ASPARTATE AMINO TRANSFERASE 1106 U/L (10-37)
--- NOTE | 2020-06-07 15:16 | NUR ---
Notified Dr Arcos that [id number] Mr He family member Emperatriz ([phone]) would like to be contacted about his plan of care and discharge planning
[2020-06-07 17:23] LABS: AFP,SERUM, TUMOR MARKER 1.2 ng/mL (0.0-8.3); HBSAG SCREEN Negative (Negative); HEP A AB, IGM Negative (Negative); HEPATITIS C ANTIBODY <0.1 s/co ratio (0.0-0.9)
[2020-06-07] MEDS: furosemide 40mg/4ml inj IV SCH (17:26)
[2020-06-07] MEDS: lisinopril 2.5mg tablet PO SCH (21:00)
[2020-06-08] VITALS (7 sets, daily range): BP systolic 97–141; BP diastolic 67–81
[2020-06-08] MEDS: Melatonin 3mg tablet PO SCH ×2 (02:03→20:43)
[2020-06-08] MEDS: HYDROmorphone inj. 0.5 MG/0.5 ML DISP.SYRIN IV PRN ×3 (02:25→20:42)
[2020-06-08 06:13] LABS: BASOPHILS # (AUTO) 0.1 X10'3 (0-0.2); BASOPHILS % (AUTO) 0.8 % (0-1); LYMPHOCYTES % (AUTO) 21.5 % (21-51); MEAN CORPUSCULAR HGB CONC 32.6 g/dL (33.0-36.5)
[2020-06-08 06:15] LABS: EOSINOPHILS # (AUTO) 0.5 X10'3 (0-0.9); EOSINOPHILS % (AUTO) 3.9 % (0-6); HEMATOCRIT 40.2 % (42.0-52.0); HEMOGLOBIN 13.1 g/dl (14.0-17.9); MEAN CORPUSCULAR HEMOGLOBIN 28.4 PG (27.0-31.0); MEAN CORPUSCULAR VOLUME 87.3 FL (78-98); MEAN PLATELET VOLUME 12.1 FL (7.4-10.4); MONOCYTES # (AUTO) 2.1 X10'3 (0-0.9); MONOCYTES % (AUTO) 14.5 % (2-12); NEUTROPHILS # (AUTO) 8.4 X10'3 (1.8-7.7); NEUTROPHILS % (AUTO) 59.3 % (42-75); PLATELET COUNT 181 X10'3 (140-440); RED CELL DISTRIBUTION WIDTH 15.3 % (11.5-14.5); WHITE BLOOD COUNT 14.1 X10'3 (4.5-11.0)
--- NOTE | 2020-06-08 06:17 | NUR ---
Problems reprioritized. Patient report given, questions answered & plan of care reviewed with Traci YOST.
[2020-06-08 06:42] LABS: ALBUMIN 2.9 G/DL (3.4-5.0); ALKALINE PHOSPHATASE 88 IU/L (46-116); ANION GAP 9 (8-16); BILIRUBIN,TOTAL 2.5 MG/DL (0.1-1.0); BLOOD UREA NITROGEN 52 MG/DL (7-18); BUN/CREATININE RATIO 33.8 (5.4-32.0); CALCIUM 8.2 MG/DL (8.5-10.1); CHLORIDE 96 MMOL/L (99-107); CREATININE 1.54 MG/DL (0.60-1.10); GLUCOSE 92 MG/DL (70-104); MAGNESIUM 2.5 MG/DL (1.5-2.4); POTASSIUM 4.4 MMOL/L (3.5-5.1); SODIUM 130 MMOL/L (135-145); TOTAL CARBON DIOXIDE 25.5 MMOL/L (24-32); TOTAL PROTEIN 5.8 G/DL (6.4-8.2); eGFR 49 ML/MIN
[2020-06-08 06:43] LABS: ALANINE AMINOTRANSFERASE 2232 U/L (12-78); ASPARTATE AMINO TRANSFERASE 1077 U/L (10-37)
[2020-06-08 08:15] LABS: NUCLEATED RED BLOOD CELLS 1 /100WBC (0-0); PLATELET ESTIMATE NORMAL; TOTAL CELLS COUNTED 100
[2020-06-08] MEDS: K and/or MAG REPLACEMENT MC SCH ×2 (08:15→20:00)
[2020-06-08 08:16] LABS: ANISOCYTOSIS 1+; GIANT PLATELET FEW; POLYCHROMASIA 1+
[2020-06-08] MEDS: furosemide 40mg/4ml inj IV SCH (08:17)
[2020-06-08 08:18] LABS: LARGE PLATELETS FEW; SMUDGE CELLS 1+
[2020-06-08] MEDS: aspirin 81mg tablet.DR PO SCH (08:18)
[2020-06-08] MEDS: carVEDilol 3.125mg tablet PO SCH ×2 (08:18→20:43)
[2020-06-08] MEDS: lactobacillus rhamnosus 10,000 MMU CELLS/CAPSULE PO SCH ×2 (08:18→20:43)
[2020-06-08] MEDS: enoxaparin 40mg/0.4ml syringe SUBCUT SCH (08:19)
[2020-06-08] MEDS ORDERED: VANCOMYCIN LEVEL IV ONE (15:30)
--- NOTE | 2020-06-08 15:58 | NUR ---
Initial: Pt presented to ED with lower left-sided abdominal pain per ED notes. Pt presented with chronic systolic heart failure, nonischemic dilated cardiomyopathy, and abnormal liver function tests. Pt. PO intake is fluctuating with the average of 50-75% of meals, meeting nutrient needs. Pt receiving heart healthy diet and dry tray. Pt last BM 06/06, receiving bowel care as needed. Will continue to monitor. Recommendations: 1. Continue heart healthy diet and dry tray 2. Bowel care as needed 3. Weight per rx Addendum: 06/08/20 at 1559 by Jon[address]IC INTERN RD Amended: Links added. Addendum: 06/08/20 at [address] RD agree with international recruiter note
[2020-06-08] MEDS: lisinopril 2.5mg tablet PO SCH (20:42)
[2020-06-09 02:00] VITALS: BP 97/69
[2020-06-09 05:32] LABS: CERULOPLASMIN 35.2 mg/dL (16.0-31.0)
--- NOTE | 2020-06-09 06:24 | NUR ---
Patient in room PCU 3013. I have received report from Nury YOST and had the opportunity to ask questions and assume patient care.
--- NOTE | 2020-06-09 06:30 | NUR ---
Problems reprioritized. Patient report given, questions answered & plan of care reviewed with RITIKA Hernández.
[2020-06-09 06:57] VITALS: BP 95/66
[2020-06-09 07:05] LABS: ALBUMIN 2.8 G/DL (3.4-5.0); ALBUMIN/GLOBULIN RATIO 0.9 (1.1-1.5); ALKALINE PHOSPHATASE 86 IU/L (46-116); ANION GAP 8 (8-16); ASPARTATE AMINO TRANSFERASE 478 U/L (10-37); BILIRUBIN,TOTAL 2.8 MG/DL (0.1-1.0); BLOOD UREA NITROGEN 46 MG/DL (7-18); BUN/CREATININE RATIO 31.9 (5.4-32.0); CALCIUM 8.1 MG/DL (8.5-10.1); CHLORIDE 96 MMOL/L (99-107); CREATININE 1.44 MG/DL (0.60-1.10); GLUCOSE 101 MG/DL (70-104); MAGNESIUM 2.4 MG/DL (1.5-2.4); POTASSIUM 4.2 MMOL/L (3.5-5.1); SODIUM 130 MMOL/L (135-145); TOTAL CARBON DIOXIDE 26.1 MMOL/L (24-32); TOTAL PROTEIN 5.9 G/DL (6.4-8.2); eGFR 53 ML/MIN
[2020-06-09 07:10] LABS: ALANINE AMINOTRANSFERASE 1660 U/L (12-78)
[2020-06-09] MEDS: K and/or MAG REPLACEMENT MC SCH (08:00)
[2020-06-09] MEDS: furosemide 40mg/4ml inj IV SCH (08:46)
[2020-06-09] MEDS: carVEDilol 3.125mg tablet PO SCH (08:46)
[2020-06-09] MEDS: aspirin 81mg tablet.DR PO SCH (08:46)
[2020-06-09] MEDS: lactobacillus rhamnosus 10,000 MMU CELLS/CAPSULE PO SCH (08:46)
[2020-06-09] MEDS: enoxaparin 40mg/0.4ml syringe SUBCUT SCH (08:48)
[2020-06-09 08:50] LABS: BASOPHILS # (AUTO) 0.1 X10'3 (0-0.2); BASOPHILS % (AUTO) 0.8 % (0-1); EOSINOPHILS # (AUTO) 0.5 X10'3 (0-0.9); EOSINOPHILS % (AUTO) 3.9 % (0-6); HEMOGLOBIN 12.7 g/dl (14.0-17.9); LYMPHOCYTES # (AUTO) 2.2 X10'3 (1.1-4.8); LYMPHOCYTES % (AUTO) 17.9 % (21-51); MEAN CORPUSCULAR HEMOGLOBIN 28.3 PG (27.0-31.0); MEAN CORPUSCULAR HGB CONC 32.6 g/dL (33.0-36.5); MEAN CORPUSCULAR VOLUME 86.8 FL (78-98); MEAN PLATELET VOLUME 12.2 FL (7.4-10.4); MONOCYTES # (AUTO) 1.7 X10'3 (0-0.9); MONOCYTES % (AUTO) 13.5 % (2-12); NEUTROPHILS # (AUTO) 7.9 X10'3 (1.8-7.7); NEUTROPHILS % (AUTO) 63.9 % (42-75); PLATELET COUNT 187 X10'3 (140-440); RED BLOOD COUNT 4.49 X10'6 (4.70-6.10); RED CELL DISTRIBUTION WIDTH 15.2 % (11.5-14.5); WHITE BLOOD COUNT 12.3 X10'3 (4.5-11.0)
[2020-06-09 11:00] VITALS: BP 91/55
[2020-06-09] MEDS ORDERED: levoFLOXACIN 500mg tablet PO SCH (11:00)
--- NOTE | 2020-06-09 13:56 | NUR ---
Paged Dr. Arcos pt Federico Cutler rm [id number] pt c/o ongoing anxiety AEB restlessness and dyspnea. SpO2 99% RA. States chronic anxiety. Would you like to tx anxiety? Betty [phone]
[2020-06-09] MEDS ORDERED: ASPI-1071 PO (14:40)
[2020-06-09] MEDS ORDERED: FURO40TA4 PO (14:40)
[2020-06-09] MEDS ORDERED: COR3.125T PO (14:40)
[2020-06-09] MEDS ORDERED: LISI2.5T2 PO (14:40)
[2020-06-09] MEDS ORDERED: LEVO500T89 PO (14:40)
--- NOTE | 2020-06-09 15:30 | NUR ---
Patient stable for D/C per MD orders. All discharge instructions reviewed with patient and all questions answered. New Rx sent to pharmacy. ePIV discontinued, marketing production manager discontinued and returned to telemetry box. Belongings collected and sent with patient. Patient wheeled to lobby and assisted to private vehicle. Departed with girlfriend.
== END 2020-06-09 15:31 | disposition home or self-care (01) | DRG 291 ==
LOC: ER 05:50 → ED HOLD 09:57 → EDBEDREQ 10:25 → SUR 3N 11:15 → PCU 3S 12:23
PROVIDERS: ADMIT Family Medicine; ATTEND Internal Medicine
PROC: CF1C1ZZ Planar Nuclear Medicine Imaging of Hepatobiliary System, All using Technetium 99m (Tc-99m) (ICD-10-PCS; principal; 2020-06-05)
DX: I13.0 Hypertensive heart and chronic kidney disease with heart failure and stage 1 through stage 4 chronic kidney disease, or unspecified chronic kidney disease (principal); I50.23 Acute on chronic systolic (congestive) heart failure; B17.9 Acute viral hepatitis, unspecified; E87.1 Hypo-osmolality and hyponatremia; N17.9 Acute kidney failure, unspecified; I42.0 Dilated cardiomyopathy; I42.7 Cardiomyopathy due to drug and external agent; E87.5 Hyperkalemia; F15.90 Other stimulant use, unspecified, uncomplicated; F12.90 Cannabis use, unspecified, uncomplicated; K82.8 Other specified diseases of gallbladder; F41.9 Anxiety disorder, unspecified; N18.9 Chronic kidney disease, unspecified; Z79.899 Other long term (current) drug therapy; Z87.891 Personal history of nicotine dependence; Z88.0 Allergy status to penicillin; Z88.5 Allergy status to narcotic agent; Y92.89 Other specified places as the place of occurrence of the external cause; Z72.89 Other problems related to lifestyle
CPT/HCPCS: 36415; 71045; 74176; 76700; 76937; 78227; 80053; 80061; 80074; 80305; 80320; 80329; 81001; 82103; 82248; 82390; 83605; 83690; 83735; 83880; 84100; 84145; 85007; 85008; 85025; 86703; 86803; 87040; 93308; 96374; 96375; 99285; A9537; G0378; J0500; J0696; J1170; J1650; J1885; J1940; J2765; J2805; J3370; J7030; J7050; Q9963

== ENCOUNTER 2020-06-15 17:44 | Emergency (ER) | payer MEDICAID, OTHER ==
[~2020-06-15] VITALS: Ht 177.8 cm; Wt 82.9 kg
[~2020-06-15 17:44] MED LIST changes: -ALBU18HF2 INH; +ASPI-1071 PO; +COR3.125T PO; -FURO-150 PO; +FURO40TA4 PO; +LEVO500T89 PO; +LISI2.5T2 PO; +NO HOME MEDS; -ONDA4TAB6 PO; -PANT40TA54 PO
[2020-06-15 21:19] LABS: BASOPHILS # (AUTO) 0.1 X10'3 (0-0.2); EOSINOPHILS # (AUTO) 0.4 X10'3 (0-0.9); LYMPHOCYTES # (AUTO) 2.2 X10'3 (1.1-4.8); MONOCYTES # (AUTO) 1.3 X10'3 (0-0.9); NEUTROPHILS # (AUTO) 7.5 X10'3 (1.8-7.7); RED CELL DISTRIBUTION WIDTH 16.1 % (11.5-14.5)
[2020-06-15 21:21] LABS: BASOPHILS % (AUTO) 0.8 % (0-1); EOSINOPHILS % (AUTO) 3.2 % (0-6); HEMOGLOBIN 12.8 g/dl (14.0-17.9); LYMPHOCYTES % (AUTO) 19.1 % (21-51); MEAN CORPUSCULAR HEMOGLOBIN 28.5 PG (27.0-31.0); MEAN CORPUSCULAR HGB CONC 32.7 g/dL (33.0-36.5); MEAN CORPUSCULAR VOLUME 87.2 FL (78-98); MEAN PLATELET VOLUME 9.1 FL (7.4-10.4); MONOCYTES % (AUTO) 11.1 % (2-12); NEUTROPHILS % (AUTO) 65.8 % (42-75); PLATELET COUNT 318 X10'3 (140-440); RED BLOOD COUNT 4.48 X10'6 (4.70-6.10); WHITE BLOOD COUNT 11.4 X10'3 (4.5-11.0)
[2020-06-15 21:24] LABS: ALANINE AMINOTRANSFERASE 342 U/L (12-78); ALBUMIN 2.8 G/DL (3.4-5.0); ALBUMIN/GLOBULIN RATIO 0.8 (1.1-1.5); ALKALINE PHOSPHATASE 79 IU/L (46-116); ANION GAP 7 (8-16); ASPARTATE AMINO TRANSFERASE 41 U/L (10-37); BILIRUBIN,TOTAL 0.8 MG/DL (0.1-1.0); BLOOD UREA NITROGEN 18 MG/DL (7-18); BUN/CREATININE RATIO 14.3 (5.4-32.0); CALCIUM 8.8 MG/DL (8.5-10.1); CHLORIDE 109 MMOL/L (99-107); CREATININE 1.26 MG/DL (0.60-1.10); GLUCOSE 95 MG/DL (70-104); POTASSIUM 5.1 MMOL/L (3.5-5.1); SODIUM 141 MMOL/L (135-145); TOTAL CARBON DIOXIDE 25.2 MMOL/L (24-32); TOTAL PROTEIN 6.3 G/DL (6.4-8.2); eGFR 62 ML/MIN
[2020-06-15 22:29] VITALS: BP 150/88
== END 2020-06-15 22:31 | disposition home or self-care (01) ==
LOC: ER 17:45
DX: R06.02 Shortness of breath (principal); I42.9 Cardiomyopathy, unspecified; F41.9 Anxiety disorder, unspecified; F12.90 Cannabis use, unspecified, uncomplicated; Z72.89 Other problems related to lifestyle; Z88.0 Allergy status to penicillin; Z88.5 Allergy status to narcotic agent; Z79.82 Long term (current) use of aspirin; Z79.899 Other long term (current) drug therapy
CPT/HCPCS: 36415; 71045; 80053; 83880; 85025; 93005; 99285

== ENCOUNTER 2022-01-03 20:31 | Emergency (ER) | payer MEDICAID ==
[~2022-01-03] VITALS: Ht 180.3 cm; Wt 72.7 kg
[~2022-01-03 20:31] MED LIST changes: -FURO40TA4 PO; +LEVO-65 PO; -LEVO500T89 PO; +LISI2.5T14 PO; -LISI2.5T2 PO
[2022-01-03 21:10] VITALS: BP 97/66
== END 2022-01-04 00:38 | disposition left against medical advice (07) ==
LOC: ER 20:32
DX: M79.601 Pain in right arm (principal); Z53.21 Procedure and treatment not carried out due to patient leaving prior to being seen by health care provider

== ENCOUNTER 2022-10-06 10:16 | Emergency (ER) | payer MEDICAID ==
[~2022-10-06] VITALS: Ht 177.8 cm; Wt 81.6 kg
[2022-10-06 10:40] LABS: BASOPHILS # (AUTO) 0.1 X10'3 (0-0.2); BASOPHILS % (AUTO) 0.4 % (0-1); EOSINOPHILS # (AUTO) 0.4 X10'3 (0-0.9); EOSINOPHILS % (AUTO) 3.2 % (0-6); HEMOGLOBIN 16.4 g/dl (14.0-17.9); LYMPHOCYTES % (AUTO) 15.8 % (21-51); MEAN CORPUSCULAR HEMOGLOBIN 28.6 PG (27.0-31.0); MEAN CORPUSCULAR HGB CONC 32.8 g/dL (33.0-36.5); MEAN CORPUSCULAR VOLUME 87.1 FL (78-98); MEAN PLATELET VOLUME 9.1 FL (7.4-10.4); MONOCYTES # (AUTO) 1.1 X10'3 (0-0.9); MONOCYTES % (AUTO) 8.6 % (2-12); NEUTROPHILS # (AUTO) 8.9 X10'3 (1.8-7.7); PLATELET COUNT 369 X10'3 (140-440); RED BLOOD COUNT 5.75 X10'6 (4.70-6.10); RED CELL DISTRIBUTION WIDTH 16.6 % (11.5-14.5); WHITE BLOOD COUNT 12.4 X10'3 (4.5-11.0)
[2022-10-06 10:52] LABS: ALANINE AMINOTRANSFERASE 26 U/L (12-78); ALBUMIN 3.5 G/DL (3.4-5.0); ALKALINE PHOSPHATASE 46 IU/L (46-116); ANION GAP 12 (8-16); ASPARTATE AMINO TRANSFERASE 19 U/L (10-37); BLOOD UREA NITROGEN 18 MG/DL (7-18); BUN/CREATININE RATIO 13.6 (10.0-20.0); CALCIUM 8.5 MG/DL (8.5-10.1); CHLORIDE 103 MMOL/L (99-107); CREATININE 1.32 MG/DL (0.60-1.10); GLUCOSE 133 MG/DL (70-104); POTASSIUM 4.5 MMOL/L (3.5-5.1); SODIUM 137 MMOL/L (135-145); TOTAL CARBON DIOXIDE 22.5 MMOL/L (24-32); TOTAL PROTEIN 6.9 G/DL (6.4-8.2); eGFR 58 ML/MIN
[2022-10-06] MEDS ORDERED: furosemide 20MG tablet PO ONE (11:35)
[2022-10-06] MEDS ORDERED: DIGO125T PO (11:38)
[2022-10-06] MEDS ORDERED: FURO-150 PO (11:38)
[2022-10-06] MEDS ORDERED: LISI20TA28 PO (11:38)
[2022-10-06] MEDS ORDERED: CARV3.122 PO (11:38)
[2022-10-06 11:48] VITALS: BP 137/97
== END 2022-10-06 11:50 | disposition home or self-care (01) ==
LOC: ER 10:17
DX: R06.02 Shortness of breath (principal); I50.9 Heart failure, unspecified; F41.9 Anxiety disorder, unspecified; F12.90 Cannabis use, unspecified, uncomplicated; Z72.89 Other problems related to lifestyle; Z88.0 Allergy status to penicillin; Z88.8 Allergy status to other drugs, medicaments and biological substances; Z79.82 Long term (current) use of aspirin; Z79.2 Long term (current) use of antibiotics; Z79.899 Other long term (current) drug therapy
CPT/HCPCS: 36415; 80053; 83880; 84484; 85025; 93005; 99284

== ENCOUNTER 2022-12-09 19:33 | Emergency (ER) | payer MEDICAID ==
[~2022-12-09] VITALS: Ht 180.3 cm; Wt 73.6 kg
[~2022-12-09 19:33] MED LIST changes: +CARV3.122 PO
[2022-12-09 19:45] VITALS: BP 110/73; TEMP 97.2
[2022-12-09 20:01] LABS: BASOPHILS # (AUTO) 0.1 X10'3 (0-0.2); BASOPHILS % (AUTO) 0.8 % (0-1); EOSINOPHILS # (AUTO) 0.5 X10'3 (0-0.9); EOSINOPHILS % (AUTO) 5.3 % (0-6); HEMOGLOBIN 15.2 g/dl (14.0-17.9); LYMPHOCYTES % (AUTO) 29.2 % (21-51); MEAN CORPUSCULAR HEMOGLOBIN 29.4 PG (27.0-31.0); MEAN CORPUSCULAR HGB CONC 33.2 g/dL (33.0-36.5); MEAN CORPUSCULAR VOLUME 88.7 FL (78-98); MEAN PLATELET VOLUME 9.8 FL (7.4-10.4); MONOCYTES # (AUTO) 0.8 X10'3 (0-0.9); MONOCYTES % (AUTO) 7.7 % (2-12); NEUTROPHILS # (AUTO) 5.8 X10'3 (1.8-7.7); PLATELET COUNT 305 X10'3 (140-440); RED BLOOD COUNT 5.18 X10'6 (4.70-6.10); RED CELL DISTRIBUTION WIDTH 14.8 % (11.5-14.5); WHITE BLOOD COUNT 10.1 X10'3 (4.5-11.0)
[2022-12-09 20:38] LABS: ALANINE AMINOTRANSFERASE 64 U/L (12-78); ALBUMIN 3.5 G/DL (3.4-5.0); ALKALINE PHOSPHATASE 50 IU/L (46-116); ANION GAP 8 (8-16); ASPARTATE AMINO TRANSFERASE 32 U/L (10-37); BILIRUBIN,TOTAL 0.8 MG/DL (0.1-1.0); BLOOD UREA NITROGEN 23 MG/DL (7-18); BUN/CREATININE RATIO 15.6 (10.0-20.0); CALCIUM 9.1 MG/DL (8.5-10.1); CHLORIDE 106 MMOL/L (99-107); CREATININE 1.47 MG/DL (0.60-1.10); GLUCOSE 109 MG/DL (70-104); POTASSIUM 4.6 MMOL/L (3.5-5.1); SODIUM 140 MMOL/L (135-145); TOTAL CARBON DIOXIDE 26.2 MMOL/L (24-32); TOTAL PROTEIN 6.9 G/DL (6.4-8.2); eCRCL 65 ML/MIN; eGFR 51 ML/MIN
[2022-12-09 20:46] LABS: PRO BRAIN NATRIURETIC PEPTIDE 7636 PG/ML (0-125)
[2022-12-10] MEDS ORDERED: ipratropium/albuterol 3ml nebule NEB ONE (00:45)
[2022-12-10] MEDS ORDERED: dexamethasone sod phosphate 10mg/ml inj IV STA (00:45)
[2022-12-10] MEDS ORDERED: azithromycin 250mg tablet PO ONE (00:45)
[2022-12-10] MEDS ORDERED: albuterol 2.5 MG/3 ML nebule NEB ONE (00:45)
[2022-12-10] MEDS ORDERED: dexamethasone sod phosphate 10mg/ml inj IM STA (00:55)
[2022-12-10 01:07] VITALS: PULSE 107; RESP 22; O2SAT 96
[2022-12-10 01:23] VITALS: PULSE 115; RESP 2; O2SAT 96
[2022-12-10] MEDS ORDERED: LORA-269 PO (01:24)
[2022-12-10] MEDS ORDERED: PRED20TA PO (01:24)
[2022-12-10] MEDS ORDERED: AZIT-164 PO (01:24)
== END 2022-12-10 01:48 | disposition home or self-care (01) ==
LOC: ER 19:34
DX: J45.901 Unspecified asthma with (acute) exacerbation (principal); F41.9 Anxiety disorder, unspecified; I11.0 Hypertensive heart disease with heart failure; Z88.0 Allergy status to penicillin; Z88.5 Allergy status to narcotic agent; Z79.899 Other long term (current) drug therapy
CPT/HCPCS: 36415; 71045; 80053; 83880; 84484; 85025; 93005; 94640; 96372; 99285; J1100; 94760

== ENCOUNTER 2022-12-19 06:34 | Emergency (ER) | payer MEDICAID ==
[~2022-12-19] VITALS: Ht 177.8 cm; Wt 77.3 kg
[~2022-12-19 06:34] MED LIST changes: +LORA-269 PO
[2022-12-19 07:06] LABS: BASOPHILS # (AUTO) 0.1 X10'3 (0-0.2); BASOPHILS % (AUTO) 0.5 % (0-1); EOSINOPHILS # (AUTO) 0.3 X10'3 (0-0.9); EOSINOPHILS % (AUTO) 2.2 % (0-6); HEMATOCRIT 45.9 % (42.0-52.0); HEMOGLOBIN 14.9 g/dl (14.0-17.9); LYMPHOCYTES # (AUTO) 2.5 X10'3 (1.1-4.8); LYMPHOCYTES % (AUTO) 17.8 % (21-51); MEAN CORPUSCULAR HEMOGLOBIN 28.9 PG (27.0-31.0); MEAN CORPUSCULAR HGB CONC 32.4 g/dL (33.0-36.5); MEAN CORPUSCULAR VOLUME 89.1 FL (78-98); MEAN PLATELET VOLUME 9.9 FL (7.4-10.4); MONOCYTES # (AUTO) 1.4 X10'3 (0-0.9); MONOCYTES % (AUTO) 10.2 % (2-12); NEUTROPHILS # (AUTO) 9.7 X10'3 (1.8-7.7); NEUTROPHILS % (AUTO) 69.3 % (42-75); PLATELET COUNT 321 X10'3 (140-440); RED BLOOD COUNT 5.16 X10'6 (4.70-6.10); RED CELL DISTRIBUTION WIDTH 15.4 % (11.5-14.5)
[2022-12-19 08:24] LABS: ALANINE AMINOTRANSFERASE 127 U/L (12-78); ALBUMIN 3.2 G/DL (3.4-5.0); ALKALINE PHOSPHATASE 85 IU/L (46-116); ANION GAP 6 (8-16); ASPARTATE AMINO TRANSFERASE 45 U/L (10-37); BILIRUBIN,TOTAL 0.9 MG/DL (0.1-1.0); BLOOD UREA NITROGEN 29 MG/DL (7-18); BUN/CREATININE RATIO 18.4 (10.0-20.0); CALCIUM 8.5 MG/DL (8.5-10.1); CHLORIDE 104 MMOL/L (99-107); CREATININE 1.58 MG/DL (0.60-1.10); GLUCOSE 113 MG/DL (70-104); POTASSIUM 4.7 MMOL/L (3.5-5.1); SODIUM 133 MMOL/L (135-145); TOTAL CARBON DIOXIDE 22.6 MMOL/L (24-32); TOTAL PROTEIN 6.3 G/DL (6.4-8.2); eCRCL 60 ML/MIN; eGFR 47 ML/MIN
[2022-12-19 08:31] LABS: PRO BRAIN NATRIURETIC PEPTIDE 8980 PG/ML (0-125)
[2022-12-19] MEDS ORDERED: LORazepam 1 MG tablet PO ONE (09:35)
[2022-12-19] MEDS ORDERED: furosemide 10 MG/1 ML 10ml inj IV ONE (09:35)
--- NOTE | 2022-12-19 11:01 | NUR ---
Pt was desatting 82 to [address] on 2 liters, nasal cannula. Pt fluctuating 90 to 99 O2 saturation
[2022-12-19 11:36] VITALS: BP 95/64; PULSE 74; TEMP 98.1; O2SAT 96
--- NOTE | 2022-12-19 11:38 | NUR ---
Patient resting comfortably at this time, patient noted with 975ml output and increased oxygen saturations. titrated oxygen off to see if patient maintains oxygen above 92%. In NAD at this time. will continue to monitor.
[2022-12-19 11:40] VITALS: RESP 24
[2022-12-19] MEDS ORDERED: FURO40TA4 PO (12:55)
== END 2022-12-19 13:30 | disposition home or self-care (01) ==
LOC: ER 06:35
DX: I50.9 Heart failure, unspecified (principal); R05.9 Cough, unspecified; J44.9 Chronic obstructive pulmonary disease, unspecified; F12.90 Cannabis use, unspecified, uncomplicated; Z72.89 Other problems related to lifestyle; Z88.0 Allergy status to penicillin; Z88.8 Allergy status to other drugs, medicaments and biological substances; Z79.82 Long term (current) use of aspirin; Z79.2 Long term (current) use of antibiotics; Z79.899 Other long term (current) drug therapy
CPT/HCPCS: 36415; 71045; 80053; 83880; 84484; 85025; 93005; 96374; 99285; J1940; A4615

== ENCOUNTER 2022-12-20 11:33 | Emergency (ER) | payer MEDICAID ==
[~2022-12-20] VITALS: Ht 177.8 cm; Wt 72.7 kg
[~2022-12-20 11:33] MED LIST changes: +FURO40TA4 PO
[2022-12-20 11:38] VITALS: RESP 16; TEMP 98
[2022-12-20 12:11] LABS: BASOPHILS # (AUTO) 0.1 X10'3 (0-0.2); BASOPHILS % (AUTO) 0.6 % (0-1); EOSINOPHILS # (AUTO) 0.4 X10'3 (0-0.9); EOSINOPHILS % (AUTO) 3.3 % (0-6); HEMATOCRIT 47.4 % (42.0-52.0); HEMOGLOBIN 15.6 g/dl (14.0-17.9); LYMPHOCYTES # (AUTO) 2.7 X10'3 (1.1-4.8); LYMPHOCYTES % (AUTO) 25.3 % (21-51); MEAN CORPUSCULAR HEMOGLOBIN 29.3 PG (27.0-31.0); MEAN CORPUSCULAR HGB CONC 32.9 g/dL (33.0-36.5); MEAN CORPUSCULAR VOLUME 88.9 FL (78-98); MEAN PLATELET VOLUME 10.2 FL (7.4-10.4); MONOCYTES # (AUTO) 1.3 X10'3 (0-0.9); MONOCYTES % (AUTO) 11.6 % (2-12); NEUTROPHILS # (AUTO) 6.4 X10'3 (1.8-7.7); NEUTROPHILS % (AUTO) 59.2 % (42-75); PLATELET COUNT 343 X10'3 (140-440); RED BLOOD COUNT 5.33 X10'6 (4.70-6.10); RED CELL DISTRIBUTION WIDTH 15.6 % (11.5-14.5); WHITE BLOOD COUNT 10.8 X10'3 (4.5-11.0)
[2022-12-20 12:12] LABS: ALANINE AMINOTRANSFERASE 108 U/L (12-78); ALBUMIN 3.2 G/DL (3.4-5.0); ALKALINE PHOSPHATASE 71 IU/L (46-116); ANION GAP 8 (8-16); ASPARTATE AMINO TRANSFERASE 30 U/L (10-37); BILIRUBIN,TOTAL 0.8 MG/DL (0.1-1.0); BLOOD UREA NITROGEN 25 MG/DL (7-18); BUN/CREATININE RATIO 14.5 (10.0-20.0); CALCIUM 8.6 MG/DL (8.5-10.1); CHLORIDE 104 MMOL/L (99-107); CREATININE 1.73 MG/DL (0.60-1.10); GLUCOSE 130 MG/DL (70-104); POTASSIUM 4.2 MMOL/L (3.5-5.1); SODIUM 137 MMOL/L (135-145); TOTAL PROTEIN 6.4 G/DL (6.4-8.2); eCRCL 54 ML/MIN; eGFR 43 ML/MIN
[2022-12-20 12:19] LABS: PRO BRAIN NATRIURETIC PEPTIDE 7729 PG/ML (0-125)
[2022-12-20 17:05] VITALS: BP 99/72; PULSE 52; O2SAT 100
== END 2022-12-20 19:46 | disposition left against medical advice (07) ==
LOC: ER 11:34
DX: R06.02 Shortness of breath (principal); Z53.21 Procedure and treatment not carried out due to patient leaving prior to being seen by health care provider
CPT/HCPCS: 36415; 71045; 80053; 83880; 84484; 85025; 93005; 99281